=== PATIENT | male | born 1990 | race Caucasian/White ===

== ENCOUNTER 2019-04-24 23:19 | Emergency (ER) | payer MEDICAID ==
[~2019-04-24] VITALS: Ht 170.2 cm; Wt 90.0 kg
[~2019-04-24 23:19] MED LIST: NOCURR
[2019-04-25] MEDS ORDERED: LIDOCAINE 1% 10 ML VIAL INJ ONE (00:30)
[2019-04-25] MEDS ORDERED: POVIDONE-IODINE 10% 15 ML SOLUTION UD ONE (01:00)
[2019-04-25] MEDS ORDERED: KETOROLAC TROMETHAMINE 60 MG/2 ML VIAL IM ONE (01:00)
[2019-04-25] MEDS ORDERED: PERTUSS(ACELL),DIPH,TET VAC/PF 0.5 ML VIAL IM ONE ×2 (01:30→02:15)
[2019-04-25] MEDS ORDERED: BACITRACIN 0.9 GM PACKET OINTMENT TP ONE (01:30)
[2019-04-25] MEDS ORDERED: GELATIN SPONGE,ABSORBABLE 12-7 MM TP ONE (02:00)
[2019-04-25] MEDS ORDERED: HYDROGEN PEROXIDE 118 ML SOLUTION ONE (03:25)
[2019-04-25] MEDS ORDERED: HYDROGEN PEROXIDE 118 ML SOLUTION TP ONE (03:30)
[2019-04-25 03:33] VITALS: BP 98/66
[2019-04-25] MEDS ORDERED: NEOMYCIN/POLYMYXIN B/HYDROCORT 10 ML OTIC SOLUTION AS ONE (03:45)
== END 2019-04-25 04:36 | disposition home or self-care (01) ==
LOC: EMS 23:20
DX: S01.312A Laceration without foreign body of left ear, initial encounter (principal); F17.210 Nicotine dependence, cigarettes, uncomplicated; Y04.2XXA Assault by strike against or bumped into by another person, initial encounter; Y93.89 Activity, other specified; Y92.89 Other specified places as the place of occurrence of the external cause; Y99.8 Other external cause status
CPT/HCPCS: 12013; 70450; 90471; 90715; 96372; 99284; J0690; J1885; J3490

== ENCOUNTER 2019-11-30 00:33 | Emergency (ER) | payer MEDICAID, OTHER ==
[~2019-11-30] VITALS: Ht 170.2 cm; Wt 90.9 kg
[2019-11-30] MEDS ORDERED: IBUPROFEN 800 MG TABLET PO ONE (01:30)
[2019-11-30 02:03] VITALS: BP 141/90
== END 2019-11-30 02:44 | disposition home or self-care (01) ==
LOC: EMS 00:38
DX: F90.9 Attention-deficit hyperactivity disorder, unspecified type (principal); F15.10 Other stimulant abuse, uncomplicated; F17.210 Nicotine dependence, cigarettes, uncomplicated